=== PATIENT | female | born 1930 | race African-American/Black ===

== ENCOUNTER 2016-10-19 11:59 | Inpatient (IN) | payer MEDICARE, OTHER ==
[~2016-10-19] VITALS: Ht 160 cm; Wt 57.2 kg
[2016-10-19] MEDS ORDERED: SODIUM CHLORIDE 0.9% 10ML VIAL ONE (12:04)
[2016-10-19] MEDS ORDERED: IOHEXOL-350 100 ML BOTTLE ONE (12:04)
[2016-10-19] MEDS ORDERED: METHYLPREDNISOLONE SOD SUCC 125 MG/2 ML VIAL IV STA (12:27)
[2016-10-19] MEDS ORDERED: IPRATROPIUM BROMIDE (0.02%) 0.5MG/2.5ML NEB HHN STA (12:27)
[2016-10-19 13:13] LABS: BASOPHILS % 0.4 % (0.0-2.0); EOSINOPHILS % 1.7 % (0.0-5.0); HEMATOCRIT. 44.2 % (36.0-48.0); HEMOGLOBIN. 14.8 g/dL (12.0-16.0); LYMPHOCYTES % 21.2 % (20.0-50.0); MEAN CORPUSCULAR HEMOGLOBIN 29.1 pg (28.0-32.0); MEAN CORPUSCULAR HGB CONC 33.4 g/dL (31.0-37.0); MEAN CORPUSCULAR VOLUME 87.1 fL (81.0-99.0); MEAN PLATELET VOLUME 8.8 fl (7.4-10.4); MONOCYTES % 9.2 % (2.0-8.0); NEUTROPHILS % 67.5 % (40.0-76.0); PLATELET 151 x1000/uL (130-400); RED BLOOD CELL COUNT 5.07 mill/uL (4.2-5.4); RED CELL DISTRIBUTION WIDTH 13.7 % (11.6-14.6); WHITE BLOOD COUNT 5.4 x1000/uL (4.5-11.0)
[2016-10-19 13:19] LABS: CHLORIDE 105 mEq/L (98-107); INDEX HEMOLYSI 1 (1-3); INDEX ICTERIC 1 (1-4); INDEX LIPEMIC 1 (1-3)
[2016-10-19 13:20] LABS: PROTHROMBIN TIME 10.6 sec
[2016-10-19 13:21] LABS: CALCIUM 9.8 mg/dL (8.5-10.1)
[2016-10-19 13:27] LABS: ALANINE AMINOTRANSFERASE 23 IU/L (13-61); ALBUMIN 3.3 g/dL (3.4-5.0); ANION GAP 12; CARBON DIOXIDE 26 mEq/L (21-32); UREA NITROGEN BLOOD 13 mg/dL (7-21); eGFR > 60 mL/min (>60)
[2016-10-19 13:30] LABS: NT PRO B-TYPE NATRIURETIC PEP 3184 pg/mL (5-125); TROPONIN I 0.34 ng/mL (0.00-0.04)
[2016-10-19] MEDS: ALBUTEROL (0.083%) 2.5MG/3ML NEB HHN SCH ×3 (13:30→14:24)
[2016-10-19] MEDS ORDERED: ASPIRIN 81MG TABLET PO ONE ×2 (15:30→17:30)
[2016-10-19 17:04] VITALS: BP 145/95
[2016-10-19] MEDS ORDERED: VALS160T23 PO (17:22)
[2016-10-19] MEDS ORDERED: MONT10TA24 PO (17:22)
[2016-10-19] MEDS ORDERED: AMLO5TAB88 PO (17:22)
[2016-10-19 17:26] VITALS: BP 145/95
[2016-10-19] MEDS: INSULIN LISPRO 100 UNITS/ML SUBCUT SCH ×2 (18:10→20:08)
[2016-10-19] MEDS ORDERED: DEXTROSE 50% WATER 50ML SYRINGE IV PRN (18:15)
[2016-10-19 19:48] LABS: BG BASE EXCESS -2.1 mmol/L (-2.0-2.0); BG CARBOXYHEMOGLOBIN 0.5 % (0.5-1.5); BG DEOXYHEMOGLOBIN 3.5 % (0.0-5.0); BG FRACTION INSPIRED OXYGEN 28; BG HCO3 ACT 21.4 mmol/L (22.0-26.0); BG METHEMOGLOBIN 0.2 % (0.0-1.5); BG OXYGEN SATURATION 96.5 % (92.0-98.5); BG OXYHEMOGLOBIN 95.8 % (94.0-97.0); BG PCO2 33.3 mmHg (35.0-45.0); BG PH 7.425 (7.350-7.450); BG SAMPLE SITE LEFT RADIAL; BG TOTAL HEMOGLOBIN 15.3 g/dL (12.0-18.0); BG VENT MODE NASAL CANNULA
[2016-10-19] MEDS: METHYLPREDNISOLONE SOD SUCC 40 MG/ML VIAL IV SCH (19:59)
[2016-10-19 20:00] VITALS: BP 104/76
[2016-10-19] MEDS: BLOOD SUGAR DIAGNOSTIC STRIP TEST SCH (21:31)
[2016-10-19] MEDS: IPRATROPIUM/ALBUTEROL 0.5-3(2.5)MG/3ML NEB HHN SCH (21:44)
[2016-10-19] MEDS ORDERED: FUROSEMIDE 40MG/4ML VIAL IVP SCH (22:30)
[2016-10-20] VITALS: BP 122/83
[2016-10-20] MEDS ORDERED: LEVOFLOXACIN 500MG PREMIX 100 ML IV NR
[2016-10-20] MEDS: IPRATROPIUM/ALBUTEROL 0.5-3(2.5)MG/3ML NEB HHN SCH ×6 (01:09→21:10)
[2016-10-20 04:00] VITALS: BP 124/77
[2016-10-20] MEDS: METHYLPREDNISOLONE SOD SUCC 40 MG/ML VIAL IV SCH ×3 (05:41→20:02)
[2016-10-20] MEDS: BLOOD SUGAR DIAGNOSTIC STRIP TEST SCH ×4 (05:55→20:05)
[2016-10-20 06:50] LABS: BASOPHILS % 0.1 % (0.0-2.0); EOSINOPHILS % 0.1 % (0.0-5.0); HEMATOCRIT. 41.1 % (36.0-48.0); HEMOGLOBIN. 13.6 g/dL (12.0-16.0); LYMPHOCYTES % 19.9 % (20.0-50.0); MEAN CORPUSCULAR HEMOGLOBIN 29.3 pg (28.0-32.0); MEAN CORPUSCULAR HGB CONC 33.2 g/dL (31.0-37.0); MEAN CORPUSCULAR VOLUME 88.2 fL (81.0-99.0); MEAN PLATELET VOLUME 9.6 fl (7.4-10.4); MONOCYTES % 1.8 % (2.0-8.0); NEUTROPHILS % 78.1 % (40.0-76.0); PLATELET 140 x1000/uL (130-400); RED BLOOD CELL COUNT 4.65 mill/uL (4.2-5.4); RED CELL DISTRIBUTION WIDTH 13.8 % (11.6-14.6); WHITE BLOOD COUNT 2.9 x1000/uL (4.5-11.0)
[2016-10-20] MEDS: INSULIN LISPRO 100 UNITS/ML SUBCUT SCH ×4 (07:38→20:09)
[2016-10-20 08:00] VITALS: BP 131/81
[2016-10-20 08:00] LABS: ANION GAP 15; CALCIUM 9.7 mg/dL (8.5-10.1); CARBON DIOXIDE 23 mEq/L (21-32); CHLORIDE 103 mEq/L (98-107); INDEX HEMOLYSI 1 (1-3); INDEX ICTERIC 1 (1-4); INDEX LIPEMIC 1 (1-3); UREA NITROGEN BLOOD 18 mg/dL (7-21); eGFR > 60 mL/min (>60)
[2016-10-20 08:03] LABS: THYROID STIMULATING HORMONE 0.57 mIU/mL (0.36-3.74)
[2016-10-20] MEDS: FUROSEMIDE 40MG/4ML VIAL IVP SCH (09:20)
[2016-10-20] MEDS: CALCIUM CARBONATE/VITAMIN D3 500MG TABLET PO SCH (09:20)
[2016-10-20] MEDS: LOSARTAN POTASSIUM 100 MG TABLET PO SCH (09:20)
[2016-10-20] MEDS: AMLODIPINE 5MG TABLET PO SCH (09:21)
[2016-10-20 12:00] VITALS: BP 101/73
[2016-10-20 16:00] VITALS: BP 121/74
[2016-10-20] MEDS: MONTELUKAST SODIUM 10MG TABLET PO SCH (16:57)
[2016-10-20] MEDS: TRAMADOL 50MG TABLET PO PRN (18:16)
[2016-10-20 20:00] VITALS: BP 119/72
[2016-10-20] MEDS: LEVOFLOXACIN 250MG PREMIX 50 ML IV SCH (23:41)
[2016-10-21] VITALS: BP 97/58
[2016-10-21] MEDS: IPRATROPIUM/ALBUTEROL 0.5-3(2.5)MG/3ML NEB HHN SCH ×6 (00:46→21:18)
[2016-10-21 04:00] VITALS: BP 105/74
[2016-10-21] MEDS: METHYLPREDNISOLONE SOD SUCC 40 MG/ML VIAL IV SCH ×3 (05:48→21:43)
[2016-10-21] MEDS: BLOOD SUGAR DIAGNOSTIC STRIP TEST SCH ×4 (07:40→21:34)
[2016-10-21 08:00] VITALS: BP 107/65
[2016-10-21] MEDS: INSULIN LISPRO 100 UNITS/ML SUBCUT SCH ×4 (08:45→21:43)
[2016-10-21] MEDS: LOSARTAN POTASSIUM 100 MG TABLET PO SCH (08:45)
[2016-10-21] MEDS: MELOXICAM 7.5MG TABLET PO SCH (08:45)
[2016-10-21] MEDS: CALCIUM CARBONATE/VITAMIN D3 500MG TABLET PO SCH (08:45)
[2016-10-21] MEDS: AMLODIPINE 5MG TABLET PO SCH (08:46)
[2016-10-21] MEDS: FUROSEMIDE 40MG/4ML VIAL IVP SCH (08:46)
[2016-10-21 12:00] VITALS: BP 103/65
[2016-10-21] MEDS: ACETYLCYSTEINE 100MG/ML 10% VIAL 4ML INH SCH (14:33)
[2016-10-21 16:00] VITALS: BP 113/68
[2016-10-21] MEDS: MONTELUKAST SODIUM 10MG TABLET PO SCH (17:06)
[2016-10-21 20:00] VITALS: BP 120/79
[2016-10-22] VITALS: BP 139/81
[2016-10-22] MEDS: ACETYLCYSTEINE 100MG/ML 10% VIAL 4ML INH SCH ×3 (00:09→21:03)
[2016-10-22] MEDS: IPRATROPIUM/ALBUTEROL 0.5-3(2.5)MG/3ML NEB HHN SCH ×5 (00:09→21:03)
[2016-10-22] MEDS: LEVOFLOXACIN 250MG PREMIX 50 ML IV SCH ×2 (00:19→23:48)
[2016-10-22 04:00] VITALS: BP 126/76
[2016-10-22] MEDS: METHYLPREDNISOLONE SOD SUCC 40 MG/ML VIAL IV SCH ×3 (05:02→21:03)
[2016-10-22] MEDS: BLOOD SUGAR DIAGNOSTIC STRIP TEST SCH ×4 (06:19→21:03)
[2016-10-22] MEDS: INSULIN LISPRO 100 UNITS/ML SUBCUT SCH ×4 (06:20→21:54)
[2016-10-22 06:45] LABS: BG BASE EXCESS 2.3 mmol/L (-2.0-2.0); BG CARBOXYHEMOGLOBIN 0.4 % (0.5-1.5); BG DEOXYHEMOGLOBIN 7.1 % (0.0-5.0); BG HCO3 ACT 26.9 mmol/L (22.0-26.0); BG METHEMOGLOBIN 0.8 % (0.0-1.5); BG OXYGEN SATURATION 92.8 % (92.0-98.5); BG OXYHEMOGLOBIN 91.7 % (94.0-97.0); BG PCO2 41.9 mmHg (35.0-45.0); BG PH 7.426 (7.350-7.450); BG PO2 66.3 mmHg (75.0-100.0); BG SAMPLE SITE RIGHT BRACHIAL; BG TOTAL HEMOGLOBIN 14.9 g/dL (12.0-18.0); BG VENT MODE ROOM AIR
[2016-10-22 08:00] VITALS: BP 129/77
[2016-10-22] MEDS: MELOXICAM 7.5MG TABLET PO SCH (09:34)
[2016-10-22] MEDS: CALCIUM CARBONATE/VITAMIN D3 500MG TABLET PO SCH (09:34)
[2016-10-22] MEDS: LOSARTAN POTASSIUM 100 MG TABLET PO SCH (09:35)
[2016-10-22] MEDS: FUROSEMIDE 40MG/4ML VIAL IVP SCH (09:36)
[2016-10-22] MEDS: AMLODIPINE 5MG TABLET PO SCH (09:36)
[2016-10-22] MEDS: BUDESONIDE 0.5MG/2ML NEB HHN SCH ×2 (10:19→21:03)
[2016-10-22 12:00] VITALS: BP 113/70
[2016-10-22] MEDS: THEOPHYLLINE ANHYDROUS 80 MG/15 ML 120ML PO SCH ×3 (13:19→23:48)
[2016-10-22] MEDS: MONTELUKAST SODIUM 10MG TABLET PO SCH (17:49)
[2016-10-22 20:00] VITALS: BP 116/73
[2016-10-22] MEDS: TRAMADOL 50MG TABLET PO PRN (23:47)
[2016-10-23] VITALS: BP 111/71
[2016-10-23] MEDS: IPRATROPIUM/ALBUTEROL 0.5-3(2.5)MG/3ML NEB HHN SCH ×6 (00:09→21:17)
[2016-10-23 04:00] VITALS: BP 134/85
[2016-10-23] MEDS: THEOPHYLLINE ANHYDROUS 80 MG/15 ML 120ML PO SCH ×4 (06:28→23:43)
[2016-10-23] MEDS: BLOOD SUGAR DIAGNOSTIC STRIP TEST SCH ×4 (06:28→20:56)
[2016-10-23] MEDS: METHYLPREDNISOLONE SOD SUCC 40 MG/ML VIAL IV SCH ×3 (06:49→20:56)
[2016-10-23 08:00] VITALS: BP 125/78
[2016-10-23] MEDS: INSULIN LISPRO 100 UNITS/ML SUBCUT SCH ×4 (08:26→21:04)
[2016-10-23] MEDS: ACETYLCYSTEINE 100MG/ML 10% VIAL 4ML INH SCH ×3 (08:31→17:56)
[2016-10-23] MEDS: BUDESONIDE 0.5MG/2ML NEB HHN SCH ×2 (09:00→21:17)
[2016-10-23] MEDS: FUROSEMIDE 40MG/4ML VIAL IVP SCH (09:00)
[2016-10-23] MEDS: LOSARTAN POTASSIUM 100 MG TABLET PO SCH (09:44)
[2016-10-23] MEDS: CALCIUM CARBONATE/VITAMIN D3 500MG TABLET PO SCH (09:45)
[2016-10-23] MEDS: MELOXICAM 7.5MG TABLET PO SCH (09:45)
[2016-10-23] MEDS: AMLODIPINE 5MG TABLET PO SCH (09:45)
[2016-10-23] MEDS: ONDANSETRON HCL 4MG/2ML VIAL IV PRN ×2 (11:27→18:57)
[2016-10-23 12:00] VITALS: BP 115/76
[2016-10-23 16:00] VITALS: BP 102/57
[2016-10-23] MEDS: MONTELUKAST SODIUM 10MG TABLET PO SCH (17:25)
[2016-10-23 20:00] VITALS: BP 102/62
[2016-10-23] MEDS: LEVOFLOXACIN 250MG PREMIX 50 ML IV SCH (23:42)
[2016-10-24] VITALS: BP 119/72
[2016-10-24] MEDS: IPRATROPIUM/ALBUTEROL 0.5-3(2.5)MG/3ML NEB HHN SCH ×3 (00:31→09:20)
[2016-10-24 04:00] VITALS: BP 115/61
[2016-10-24] MEDS: METHYLPREDNISOLONE SOD SUCC 40 MG/ML VIAL IV SCH ×2 (04:46→12:23)
[2016-10-24] MEDS: THEOPHYLLINE ANHYDROUS 80 MG/15 ML 120ML PO SCH ×2 (05:46→12:00)
[2016-10-24 08:00] VITALS: BP 128/73
[2016-10-24] MEDS: INSULIN LISPRO 100 UNITS/ML SUBCUT SCH (08:10)
[2016-10-24] MEDS: FUROSEMIDE 40MG/4ML VIAL IVP SCH (08:50)
[2016-10-24] MEDS: AMLODIPINE 5MG TABLET PO SCH (08:51)
[2016-10-24] MEDS: LOSARTAN POTASSIUM 100 MG TABLET PO SCH (08:58)
[2016-10-24] MEDS: MELOXICAM 7.5MG TABLET PO SCH (08:58)
[2016-10-24] MEDS: CALCIUM CARBONATE/VITAMIN D3 500MG TABLET PO SCH (08:59)
[2016-10-24] MEDS: BUDESONIDE 0.5MG/2ML NEB HHN SCH (09:20)
[2016-10-24] MEDS: ACETYLCYSTEINE 100MG/ML 10% VIAL 4ML INH SCH (09:20)
[2016-10-24 11:41] VITALS: BP 101/79
[2016-10-24 12:00] VITALS: BP 101/79
== END 2016-10-24 13:25 | disposition home or self-care (01) | DRG 291 ==
LOC: ER 13:04 → 7WST 15:16
PROVIDERS: ADMIT Specialist; ATTEND Specialist
DX: I11.0 Hypertensive heart disease with heart failure (principal); J96.00 Acute respiratory failure, unspecified whether with hypoxia or hypercapnia; J44.1 Chronic obstructive pulmonary disease with (acute) exacerbation; C34.91 Malignant neoplasm of unspecified part of right bronchus or lung; J44.0 Chronic obstructive pulmonary disease with (acute) lower respiratory infection; I50.31 Acute diastolic (congestive) heart failure; R73.9 Hyperglycemia, unspecified; J20.9 Acute bronchitis, unspecified; Z90.2 Acquired absence of lung [part of]; Z92.3 Personal history of irradiation; Z79.899 Other long term (current) drug therapy
CPT/HCPCS: 36415; 36600; 71010; 71275; 80048; 80053; 82375; 82805; 82962; 83880; 84443; 84484; 85025; 85610; 87070; 87102; 87107; 93005; 93306; 94640; 96374; 97116; 97162; 97165; 99291; A4216; C1893; J1815; J1940; J1956; J2405; J2920; J2930; J7608; J7611; J7620; J7626; Q9967